=== PATIENT | female | born 2000 | race Caucasian/White ===

== ENCOUNTER 2024-01-27 23:32 | Emergency (ER) | payer OTHER ==
[2024-01-28] MEDS ORDERED: ALBUTEROL SO4 2.5/IPRATROPIUM 0.5 INH SOL 3 ML VIAL.NEB. NEB ONE ×2 (00:46→01:05)
[2024-01-28] MEDS ORDERED: DEXAMETHASONE 4 MG TABLET (FP) ONE (00:53)
[2024-01-28] MEDS: DEXAMETHASONE 4 MG TABLET (FP) PO ONE (01:00)
[2024-01-28 01:01] VITALS: BP 136/83; PULSE 92; RESP 16; TEMP 99; BMI 24.5
[2024-01-28] MEDS: ALBUTEROL SO4 2.5/IPRATROPIUM 0.5 INH SOL 3 ML VIAL.NEB. NEB ONE (01:32)
== END 2024-01-28 02:09 | disposition home or self-care (01) ==
LOC: JER 23:32
PROC: 3E0F7GC Introduction of Other Therapeutic Substance into Respiratory Tract, Via Natural or Artificial Opening (ICD-10-PCS; principal; 2024-01-28)
DX: U07.1 COVID-19 (principal); R06.02 Shortness of breath
CPT/HCPCS: 0241U-QW; 71046-TC-FY; 99284-25